=== PATIENT | female | born 1990 | race Caucasian/White ===

== ENCOUNTER → 2023-09-04 06:34 | Outpatient (CLI) | payer OTHER, SELFPAY ==
--- NOTE | 2023-09-04 06:37 | DI.US.S_ITS ---
PROCEDURE: US EXTREMITY NONVASC LOWER LT INDICATIONS: Pain in left lower leg TECHNIQUE: Real-time scanning was performed of the left lateral thigh, with image documentation. COMPARISON: None. FINDINGS: Focused ultrasound examination along left lateral distal thigh at patient's reported area of pain shows no discrete soft tissue mass or drainable fluid collection. No abnormal intramuscular fluid. IMPRESSION: No abnormality is seen in distal lateral left thigh at patient's reported area of pain. Dictated by: Santos Thompson M.D. on 09/04/2023 at 9:05 Approved by: Santos Thompson M.D. on 09/04/2023 at 9:07
== END ==
PROVIDERS: Referring Provider General Practice; Visit Provider General Practice
DX: M79.662 Pain in left lower leg (principal)
CPT/HCPCS: 76882